=== PATIENT | male | born 1995 | race African-American/Black ===

== ENCOUNTER 2018-04-19 22:06 | Inpatient (IN) | payer OTHER ==
[~2018-04-19] VITALS: Ht 182.9 cm; Wt 61.3 kg
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
[2018-04-20 01:15] VITALS: BP 114/71
[2018-04-20] MEDS ORDERED: MAG HYDROX/AL HYDROX/SIMETH 30 ML UDC PO PRN (02:00)
[2018-04-20] MEDS ORDERED: HYDROCODONE/APAP 5/325MG 1 EACH TABLET PO PRN (02:00)
[2018-04-20] MEDS ORDERED: ONDANSETRON HCL/PF 4 MG/2 ML VIAL IVP PRN (02:00)
[2018-04-20] MEDS ORDERED: ACETAMINOPHEN 325 MG TABLET PO PRN (02:00)
[2018-04-20] MEDS ORDERED: MAGNESIUM HYDROXIDE 30 ML UDC PO PRN (02:00)
[2018-04-20] MEDS ORDERED: Z GUARD REMEDY 2 OZ OINT TP PRN (02:00)
[2018-04-20] MEDS ORDERED: ZOLPIDEM TARTRATE 5 MG TABLET PO PRN (02:00)
[2018-04-20] MEDS: CYCLOBENZAPRINE 10 MG TABLET PO PRN ×2 (02:56→11:37)
[2018-04-20 04:00] VITALS: BP_SYST 106; BP_DIAS 52; BP_DIAS 57
--- NOTE | 2018-04-20 06:53 | NUR ---
LIME SLUDGE KILN OPERATOR CLOSING NOTES Patient in bed, asleep, easily arousable. Not in any distress. Patient remains stable. No complaints as of this time. All needs attended to. All due medications given as ordered. Safety measures in place. Call hilton within reach. Bed in low, locked position. Will endorse PARVEZ to oncoming RN. Addendum: 04/20/18 at 0658 by ZAC FERNANDEZ RN ADDITIONAL NOTES TELE monitor in place, sinus sandra 49.
--- NOTE | 2018-04-20 07:10 | NUR ---
telecom manager initial notes Received patient in bed, asleep, head of bed elevated, no SOB or distress noted, on room air and tolerated well. IV intact and patent HL only. On tele monitor SB heart rate of 51, alert and oriented x 4, verbally responsive and able to make needs known. No facial grimace noted, call light with in patient reach, will continue to monitor accordingly.
[2018-04-20 08:00] VITALS: BP 121/57
[2018-04-20 16:00] VITALS: BP 94/56
--- NOTE | 2018-04-20 19:08 | NUR ---
ms rn closing notes All needs provided, attended, and anticipated. patient in stable condition at this time. No complaint of pain or discomfort. Endorsed to next shift RN to continue care. Call light with in patient reach.
--- NOTE | 2018-04-20 19:15 | NUR ---
MS RN OPENING NOTES RECEIVED PT RESTING IN BED, WATCHING TV, ONE FAMILY MEMBER @ BEDSIDE. A & O X 4. NO C/O MUSCLE PAIN VERBALIZED @ THIS TIME. NO SOB, NO ACUTE CHANGES NOTED. IV ACCESS TO LAC, INTACT PATENT, SL. AMBULATORY WITH STAND BY ASSIST. CONTINENT/BRP. SAFETY MEASURES IN PLACE. INFORMED THE PT TO CALL FOR HELP WHEN GETTING OUT OF BED, VERBALIZED UNDERSTANDING. CALL LIGHT WITHIN REACH. BED IN LOW LOCKED POSITION. WILL MONITOR CLOSELY.
[2018-04-20 20:00] VITALS: BP 116/64
--- NOTE | 2018-04-21 06:28 | NUR ---
MS RN CLOSING NOTES PT SLEPT WELL @ NIGHT, NO C/O MUSCLE PAIN VERBALIZED @ ALL @ NIGHT. A & O X 4. NO SOB, NO ACUTE CHANGES NOTED. IV ACCESS TO LAC, INTACT PATENT, SL. AMBULATORY WITH STAND BY ASSIST. CONTINENT/BRP. SAFETY MEASURES IN PLACE. INFORMED THE PT TO CALL FOR HELP WHEN GETTING OUT OF BED, VERBALIZED UNDERSTANDING. CALL LIGHT WITHIN REACH. BED IN LOW LOCKED POSITION. WILL ENDORSE TO AM RN.
[2018-04-21 06:44] LABS: MEAN CORPUSCULAR HEMOGLOBIN 23 PG (26.0-33.0); PLATELET COUNT (AUTO) 211 /CMM (150-450); RDW COEFFICIENT OF VARIATION 14.1 (11.5-15.0); WHITE BLOOD COUNT (AUTO) 6.9 K/uL (4.3-11.0)
[2018-04-21 06:59] LABS: HEMATOCRIT 38 % (39-51); HEMOGLOBIN 12.1 g/dL (13.5-17.5); MEAN CORPUSCULAR VOLUME 71 fL (80-96); RED BLOOD CELL COUNT(AUTO) 5.36 MIL/uL (4.5-6.0)
[2018-04-21 07:00] LABS: BASOPHILS % (AUTO) 0.7 % (0.0-2.0); EOSINOPHILS % (AUTO) 1.5 % (0.0-6.0); LYMPHOCYTES % (AUTO) 30.5 % (20.0-44.0); MEAN CORPUSCULAR HGB CONC 32 g/dl (31.0-36.0); MONOCYTES % (AUTO) 10.8 % (2.0-12.0); NEUTROPHILS % (AUTO) 56.5 % (43.0-81.0)
[2018-04-21] MEDS ORDERED: KETOROLAC TROMETHAMINE INJ 30 MG/ML VIAL IV PRN (07:00)
--- NOTE | 2018-04-21 07:00 | NUR ---
RN INITIAL NOTES PT AWAKE AND ALERT. NO SIGNS OF LABORED BREATHING. DENIES ANY PAIN. SKIN IS INTACT. IV ACCESS ON THE LEFT AC 20G IS PATENT AND INTACT. PATIENT IN ROOM AIR. BED ON LOW, CALL LIGHT WITHIN REACH. WILL CONTINUE TO MONITOR AND ASSESS PATIENT.
[2018-04-21 07:02] LABS: CALCIUM, SERUM 8.6 mg/dL (8.5-10.1); CREATININE 0.9 mg/dL (0.6-1.3); MAGNESIUM 1.8 mg/dL (1.8-2.4); PHOSPHORUS 4.7 mg/dL (2.5-4.9); POTASSIUM 4.1 mmol/L (3.5-5.1)
[2018-04-21 07:30] VITALS: BP 105/66
[2018-04-21 07:56] LABS: BAND % (MANUAL) 1 % (0.0-5.0); EOSINOPHILS % (MANUAL) 4 % (0-4); LYMPHOCYTES % (MANUAL) 34 % (16-48); MONOCYTES % (MANUAL) 9 % (0-11.0); NEUTROPHILS % (MANUAL) 52 (42-76)
[2018-04-21] MEDS: CYCLOBENZAPRINE 10 MG TABLET PO PRN (07:56)
[2018-04-21 08:00] VITALS: BP 105/66
[2018-04-21] MEDS ORDERED: HYDR-552 PO (08:18)
[2018-04-21] MEDS ORDERED: CYCL5TAB PO (08:18)
[2018-04-21] MEDS ORDERED: predniSONE 5 MG TABLET PO SCH (09:00)
--- NOTE | 2018-04-21 09:19 | NUR ---
MS RN NOTES MD came seen and examined the patient and ordered to hold prednisone as ordered. All orders carried out and noted.
--- NOTE | 2018-04-21 11:47 | NUR ---
STORAGE GARAGE ATTENDANT NOTES PT LEFT AMBULATORY, OFFERED HIM A WHEELCHAIR BUT HE SAID "NO, I'M OKAY TO WALK." NO SIGNS OF LABORED BREATHING. PT DENIES ANY PAIN. IV ACCESS REMOVED, NO SIGNS OF BLEEDING. EDUCATIONAL INSTRUCTIONS GIVEN TO THE PATIENT AND UNDERSTAND TREATMENT. DIGITAL COPY OF X-RAYS WERE ALSO PROVIDED TO THE PATIENT. PT INSTRUCTED TO FOLLOW UP WITH PRIMARY CARE PROVIDER WITHIN 3 DAYS, FOLLOW UP WITH NEUROLOGIST OUTPATIENT, AND TAKE PO PAIN MEDICATION ORDERED AND PRESCRIBED, PT VERBALIZES UNDERSTANDING OF FOLLOW-UP CARE. PNEUMONIA VACCINATION WAS NOT GIVEN DUE TO PT BEING UNDER 65 YEARS OLD. FLU VACCINATION WAS NOT GIVEN DUE TO OUT OF [place] BUT GIVEN EDUCATION ABOUT BENEFITS AND RISKS OF GETTING THE FLU VACCINE. PT IS STABLE AT TIME OF DISCHARGE.
--- NOTE | 2018-04-21 11:48 | NUR ---
ms yarn weigher notes Additional notes: skin intact no need for pictures. Left in stable condition accompanied by girlfriend.
== END 2018-04-21 11:45 | disposition home or self-care (01) | DRG 74 ==
LOC: TELE 04-20 00:56 → MED 04-20 10:42
PROVIDERS: ADMIT Family Medicine; ATTEND Nurse Practitioner Acute Care
DX: M54.12 Radiculopathy, cervical region (principal); M48.061 Spinal stenosis, lumbar region without neurogenic claudication; F12.90 Cannabis use, unspecified, uncomplicated
CPT/HCPCS: 36415; 72131-TC; 80048-TC; 80061-TC; 83735-TC; 84100-TC; 85025-TC; 87081-TC; 93307-TC; J7512; Z7610